=== PATIENT | female | born 1945 | race Caucasian/White ===

== ENCOUNTER 2020-07-24 14:37 | Outpatient (CLI) | payer MEDICARE, SELFPAY ==
--- NOTE | 2020-07-24 14:58 | MM_ITS ---
WS: [id number] BILATERAL DIGITAL SCREENING MAMMOGRAPHY WITH CAD CLINICAL INFORMATION: SCREENING HISTORY: Screening mammogram. No current complaints. COMPARISON: TECHNIQUE: Bilateral CC and MLO views. FINDINGS: Scattered fibroglandular densities bilaterally. No suspicious focal mass, asymmetry, calcifications, or architectural distortion. No evidence of malignancy. MM/[place] [id number] IMPRESSION: BI-RADS: 1-Negative FOLLOW UP: 1 Year Follow-up Recommend return to annual screening mammography.
--- NOTE | 2020-07-24 15:44 | XR_ITS ---
WS: [id number] Bone mineral density performed on a [employer] IDXA, 2 day Clinical data: ASYMPTOMATIC POSTMENOPAUSAL STATE COMPARISON study: DEXA scan, 09/09/2014. Findings: The first 4 lumbar vertebral bodies demonstrated the bone mineral density of 1.271 g/cm2 for a young adult T score of 0.8. Measurement of the left hip reveals the bone mineral density of 0.802 g/sq cm for young adult T scor e of -1.6. XR/XR DEXA axial skeleton* [id number] Impression: 1. The bone mineral density of the lumbar spine is normal and actually shows sl ight improvement from the bone mineral density of the prior study. 2. The bone mineral density of the left hip shows osteopenia with a slight decr ease in the bone mineral density compared to the prior study.
--- NOTE | 2020-07-24 15:44 | XR_ITS ---
WS: [id number] Right hip, AP and frog-leg views, 07/24/2020 Clinical Data: Osteoarthritis, unspecified SITE Comparison: Right hip, 05/15/2014. Findings: The right hip arthroplasty has not changed. The components remain in good position. There are no frac tures or dislocations. No loosening is seen. The adjacent right pelvis is unremarkable. XR/XR hip RT 2-3V wo/w pel* [id number] Impression: Satisfactory right hip arthroplasty.
--- NOTE | 2020-07-24 15:44 | XR_ITS ---
WS: [id number] Cervical spine, 3 views, 07/24/2020 Clinical Data: HEADACHE UNSPECIFIED Comparison: None. Findings: No compression fractures are seen. There is disc space narrowing at C5-C6. There is anterio r osteoarthritic spurring at C3, C4, C5 and C6. There is no prevertebral soft tissue swelling. The od ontoid is unremarkable. The cervical vertebra show diffuse osteoporosis. The soft tissues of the neck and the lung apices are normal. XR/XR cervical spine 3V* [id number] Impression: 1. Osteoarthritis from C3 through C6. 2. Degenerative disc narrowing at C5-C6. 3. Osteoporosis of the cervical vertebra.
== END 2020-07-24 14:38 | disposition home or self-care (01) ==
LOC: RADSHAW 14:48
PROVIDERS: PCP Family Medicine; Visit Provider Family Medicine
DX: Z12.31 Encounter for screening mammogram for malignant neoplasm of breast (principal); Z78.0 Asymptomatic menopausal state; Z96.641 Presence of right artificial hip joint; R51.9 Headache, unspecified; M47.812 Spondylosis without myelopathy or radiculopathy, cervical region; M81.0 Age-related osteoporosis without current pathological fracture
CPT/HCPCS: 72040; 73502; 77067; 77080

== ENCOUNTER 2023-01-13 14:08 | Outpatient (CLI) | payer MEDICARE, SELFPAY ==
--- NOTE | 2023-01-13 14:29 | USCV_ITS ---
Brii Julian Age: 77 Gender: F : 1945 Exam Date: 01/13/2023 15:16 Ordering Phys: Lorena Castillo MD Technologist: [place] [facility] [place]: [place] Risk Factors: Previous Vascular Surgery: Right Brachial BP: / Left Brachial BP: / Right Left Velocity (cm/s) Spectral Plaque Velocity (cm/s) Spectral Plaque Syst/Diast Broadening Syst/Diast Broadening 59.80/ 10.90 Prox CCA 51.50 / 11.80 61.40/ 10.10 Mid CCA 48.00 / 12.40 53.60/ 10.90 Distal CCA 46.80 / 7.10 55.70/ 15.40 Prox ICA 37.90 / 9.50 49.70/ 11.20 Mid ICA 45.60 / 8.90 56.80/ 13.60 Distal ICA 79.30 / 15.40 71.60 ECA 59.80 0.93 ICA/CCA 1.54 Antegrade Vertebral Antegrade 52.70/ 9.50 cm/s 53.90/ 9.50 cm/s Bi Subclavian Bi 82.30 84.10 CONCLUSIONS Right ICA stenosis <50%. Mild atheromatous plaque right carotid bulb/ICA. Left ICA stenosis <50%. Mild atheromatous plaque left carotid bulb/ICA. Normal antegrade Doppler flow noted in the right vertebral artery. Normal antegrade Doppler flow noted in the left vertebral artery. Thad Greene MD (Electronically Signed) Final Date: 17 Jan 2023 09:59 S
--- NOTE | 2023-01-13 14:32 | USCV_ITS ---
Brii Julian Age: 77 Gender: F : 1945 Exam Date: 01/13/2023 15:27 Ordering Phys: Lorena Castillo MD Technologist: [place] [facility] [place]ication: chest pain BP: 130 / 80 HR: 86 Rhythm: Sinus Technical Quality: Suboptimal MEASUREMENTS (Male / Female) Normal Values 2D ECHO LV Diastolic Diameter PLAX 5.0 cm 4.2 - 5.9 / 3.9 - 5.3 cm LV Systolic Diameter PLAX 3.8 cm IVS Diastolic Thickness 1.2 cm 0.6 - 1.0 / 0.6 - 0.9 cm IVS Systolic Thickness 1.8 cm LVPW Diastolic Thickness 1.4 cm 0.6 - 1.0 / 0.6 - 0.9 cm LVPW Systolic Thickness 1.8 cm LVOT Diameter 2.4 cm LV Ejection Fraction 2D Teich 33.4 % LV Ejection Fraction MOD 2C 56.7 % LV Ejection Fraction 2C AL 60.0 % LA Diameter 4.1 cm LA Width 6.0 cm IVC Diameter 1.0 cm M-MODE Aortic Annulus Diameter 3.4 cm LA Ao Ratio MM 1.2 MV E Point Septal Separation 0.8 cm DOPPLER AV Peak Velocity 259.0 cm/s LVOT Peak Velocity 111.0 cm/s AV Area Cont Eq vti 2.3 cm squared AV Area Cont Eq pk 1.9 cm squared MV Area PHT 3.0 cm squared Mitral E to A Ratio 0.7 MV E' Velocity 33.5 cm/s Mitral E to MV E' Ratio 6.5 Mitral E to LV E' Lateral Ratio 5.7 Mitral E to LV E' Septal Ratio 7.7 TR Peak Velocity 240.7 cm/s TR Peak Gradient 23.2 mmHg TV Peak E Velocity 108.0 cm/s Right Atrial Pressure 3.0 mmHg Pulmonary Artery Systolic Pressu 26.2 mmHg RV Acceleration Time 0.2 s FINDINGS Left Ventricle Normal left ventricular size, systolic function and wall thickness, with no regional wall motion abnormalities. Grade I/IV diastolic dysfunction (abnormal relaxation filling pattern), normal to mildly elevated filling pressures. Left ventricular ejection fraction is estimated at 60 %. Right Ventricle Normal right ventricular size and systolic function. Normal right ventricular systolic pressure. Right Atrium Mildly increased right atrial size. Left Atrium Mildly increased left atrial size. Mitral Valve Structurally normal mitral valve. Mild mitral valve regurgitation. Aortic Valve Structurally normal trileaflet aortic valve. Mild aortic valve calcification. Trace aortic valve regurgitation. No aortic valve stenosis. Tricuspid Valve Structurally normal tricuspid valve. Mild tricuspid valve regurgitation. Pulmonic Valve Pulmonic valve not well visualized. Pericardium Normal pericardium without effusion. Aorta Normal ascending aorta dimension. IVC The inferior vena cava appears normal. CONCLUSIONS Normal left ventricular size, systolic function and wall thickness, with no regional wall motion abnormalities. Grade I/IV diastolic dysfunction (abnormal relaxation filling pattern), normal to mildly elevated filling pressures. Left ventricular ejection fraction is estimated at 60 %. Mildly increased right atrial size. Mildly increased left atrial size. Structurally normal mitral valve. Mild mitral valve regurgitation. Structurally normal trileaflet aortic valve. Mild aortic valve calcification. Trace aortic valve regurgitation. No aortic valve stenosis. There are no prior echocardiogram studies to compare. Dr. Wagner Martínez MD (Electronically Signed) Final Date: 14 Jan 2023 09:54 S
== END 2023-01-13 14:09 | disposition home or self-care (01) ==
PROVIDERS: PCP Family Medicine; Visit Provider Family Medicine
DX: I65.21 Occlusion and stenosis of right carotid artery (principal); R07.9 Chest pain, unspecified; R06.00 Dyspnea, unspecified; I51.7 Cardiomegaly
CPT/HCPCS: 93306; 93880

== ENCOUNTER 2024-02-22 11:47 | Emergency (ER) | payer MEDICARE, SELFPAY ==
[2024-02-22 11:51] VITALS: BP 142/68; PULSE 64; RESP 16; TEMP 36.4; O2SAT 97; BMI 28.1
--- NOTE | 2024-02-22 13:19 | XRR_ITS ---
PROCEDURE INFORMATION: Exam: XR Lumbosacral Spine Exam date and time: 02/22/2024 1:31 PM Age: 78 years old Clinical indication: Injury or trauma; Fall; Blunt trauma (contusions or hematomas); Additional info: Fall, low back pain. No history of surgery is provided. TECHNIQUE: Imaging protocol: Radiologic exam of the lumbosacral spine. 3image(s) are provided. Views: 2 or 3 views. COMPARISON: No relevant prior lumbar studies available. Previous abdominal CT report of 2012. FINDINGS: Tubes, catheters and devices: Joint prosthetic hardware of the hip is demonstrated on the lateral view. Bones/joints: Osseous alignment is overall maintained. No displaced fracture or dislocation is appreciated.There is slightly decreased bone mineralization overall. There is some cortical thickening suggestive of injury of the sacrococcygeal junction. There does appear to be some subtle offset however. Consider overall if there is localized point tenderness. Symmetric appearance of the sacral arcuate lines and sacroiliac junctions are appreciated. There is multilevel degeneration present overall throughout the spine with areas of spurring and disc space narrowing. This includes some bridging osteophytosis of the thoracolumbar junction as well as exuberant posterior element hypertrophy of the lumbosacral junction. There is some subtle anterolisthesis of the L4-L5 level. Soft tissues: No radiopaque foreign body or subcutaneous emphysema is appreciated. Lungs: No lobar consolidation is appreciated. Vasculature: There is some atherosclerotic vascular calcifications present. XR/XR lumbar spine 2-3V* [id number] IMPRESSION: 1. There are multilevel degenerative changes of the lumbar spine demonstrated with no displaced lumbar fracture or dislocation appreciated. 2. There is however some subtle cortical offset indicative of nondisplaced injury about the sacrococcygeal junction.
--- NOTE | 2024-02-22 13:19 | W.ED.BACK ---
HPI - Back Pain/Injury General: Chief Complaint: Back Pain/Injury Stated Complaint: back pain from fall Time Seen by Provider: 02/22/24 12:15 History of Present Illness: 78-year-old female comes in today with complaints of low back pain radiating down the right leg. Patient endorses that she was on the deck last week when she slipped twisting and following on a wet ground. Since then patient has had some low back pain that seems to radiate into her right hip. Patient is been ambulatory. Patient has been having to drive back and forth from her house to the hospital due to her 's illness. Patient reports increased pain and discomfort and tightness in her lower back. Patient appears nontoxic. Patient denies any chronic medical problems. Patient takes no routine medicines. Patient taken some Tylenol with minimal relief. Review of Systems General: Reports: 10 or more systems reviewed and unremarkable except in HPI and below Musc: Reports: back pain Physical Exam Const: COMMON NORMALS: alert HENMT: COMMON NORMALS: normocephalic HEAD & SCALP: normocephalic Neck/C-Spine: COMMON NORMALS: full ROM Resp: COMMON NORMALS: normal respiratory effort Cardio: COMMON NORMALS: regular rate and regular rhythm RATE: regular rate RHYTHM: regular rhythm GI: COMMON NORMALS: non-tender Back/Pelvis: THORACIC SPINE/UPPER BACK: Yes normal to inspection LUMBAR SPINE/LOWER BACK: Yes lumbar spinal tenderness Lumbar spinal tenderness location: L4 and L5 and Yes paraspinal muscle tenderness Lumbar paraspinal muscle tenderness: right SACROILIAC JOINTS: Yes SI joint(s) abnormal SI joint details: tender to palpation (right) Extremity: COMMON NORMALS: normal to inspection Neuro: SENSORIUM/ORIENTATION: Yes alert Skin: COMMON NORMALS: turgor normal GENERAL SKIN EXAM: turgor normal Course Vital Signs: Vital signs: Vital Signs Temperature 97.6 F 02/22/24 11:51 Pulse Rate 64 02/22/24 11:51 Respiratory Rate 16 02/22/24 11:51 Blood Pressure 142/68 02/22/24 11:51 Pulse Oximetry 97 02/22/24 11:51 Oxygen Delivery Me thod Room Air 02/22/24 11:51 MDM - Back Pain/Injury Medical Decision Making 78-year-old female comes in today with complaints of low back pain with pain rating down the right leg. Patient appears nontoxic. Patient appears in no acute distress. Respirations are even lungs are clear to auscultation. Abdomen soft nontender. Skin is warm and dry. Patient has tenderness in the L4-L5 region of the lumbar spine. Patient has tenderness in the right paraspinous muscles of the lumbar spine. Patient has some tenderness in the right sacroiliac joint. Patient has normal range of motion of the extremities and is weightbearing. Differential diagnosis includes intervertebral disc disease, vertebral fracture, lumbar strain, facet arthropathy. X-ray noted significant degenerative changes of the lumbar spine and a possible nondisplaced fracture of the sacrococcygeal junction. Palpation of the area did not elicit pain. If this is a nondisplaced fracture is a old injury. Believe patient most likely has a lumbar strain with some lumbar radiculopathy. Patient will be put on naproxen 500 mg twice a day for the next 10 days. Patient to use Tylenol furthermore for pain relief. Patient reports understanding and agreed to plan. Patient was given ketorolac 30 mg in the ER and 10 mg of dexamethasone. Labs Radiology Impressions Lumbar Spine X-Ray 02/22/24 13:19 IMPRESSION: 1. There are multilevel degenerative changes of the lumbar spine demonstrated with no displaced lumbar fracture or dislocation appreciated. 2. There is however some subtle cortical offset indicative of nondisplaced injury about the sacrococcygeal junction. All radiology interpretation(s) finalized by discharge Discharge Plan Discharge Patient Disposition: Home Clinical Impression: Lumbar radiculopathy Condition: Stable Prescriptions: New naproxen 500 mg tablet 500 mg PO BID PRN (Reason: pain) Qty: 20 0RF Discharge Orders: Discharge ED (Routine); Ordered 02/22/24 Ordered By: Rustam Arias Referrals: Lorena Castillo MD [Primary Care Provider] - Discharge Diet: Usual diet Discharge Activity: Increase activity as tolerated Patient Instructions: Back Pain (ED) Activity Restrictions/Additional Instructions: Activity as tolerated. Continue with acetaminophen to help with pain. Use naproxen 500 mg twice a day for further pain and inflammation relief. Follow-up with primary care in 3 to 5 days for recheck. Return to ED for new concerns. Coding Level of Care Code ED Leather Stripping Machine Operator for Em Echevarria
[2024-02-22] MEDS: dexamethasone 10 mg/mL INJ IM (13:44)
[2024-02-22] MEDS: ketorolac 30 mg/mL INJ IM (13:44)
[2024-02-22 14:45] VITALS: BP 139/76; PULSE 66; RESP 16; O2SAT 98
== END 2024-02-22 14:46 | disposition home or self-care (01) ==
PROVIDERS: Emergency Provider Nurse Practitioner Family; PCP Family Medicine
DX: M54.16 Radiculopathy, lumbar region (principal)
CPT/HCPCS: 72100; 96372; 99284; J1100; J1885

== ENCOUNTER 2024-03-02 13:55 | Outpatient (CLI) | payer MEDICARE, SELFPAY ==
--- NOTE | 2024-03-02 14:12 | XRR_ITS ---
PROCEDURE INFORMATION: Exam: XR Right Hip Exam date and time: 03/02/2024 2:13 PM Age: 78 years old Clinical indication: Injury or trauma; Fall; Prior surgery; Surgery date: 6+ months; Surgery type: RT hip arthroplasty; Additional info: RT hip pain post fall x 1 week ago; HX RT hip arthroplasty TECHNIQUE: Imaging protocol: Radiologic exam of the right hip. Views: 1 view hip with pelvis when performed. COMPARISON: CR XR hip RT 2-3V wo/w pel* [id number] 07/24/2020 3:52 PM FINDINGS: Bones/joints: Right total hip replacement. Acetabular and proximal femoral components appear intact without obvious complication. There are moderate degenerative changes across the pubic symphysis and visualized sacroiliac joints. No evidence for acute fracture. Soft tissues: There are benign-appearing soft tissue calcifications. Vasculature: There are peripheral vascular calcifications. XR/XR hip RT 2-3V wo/w pel* [id number] IMPRESSION: No acute findings.Non acute findings as described above.
== END 2024-03-02 13:56 | disposition home or self-care (01) ==
PROVIDERS: PCP Family Medicine; Visit Provider Family Medicine
DX: M16.0 Bilateral primary osteoarthritis of hip (principal); W19.XXXA Unspecified fall, initial encounter; Z96.641 Presence of right artificial hip joint; M61.9 Calcification and ossification of muscle, unspecified; M25.551 Pain in right hip
CPT/HCPCS: 73502

== ENCOUNTER 2024-09-04 22:27 | Emergency (ER) | payer MEDICARE, SELFPAY ==
[2024-09-04 22:27] VITALS: BP 185/128; PULSE 76; RESP 22; TEMP 36.5; O2SAT 98; BMI 34.4
--- NOTE | 2024-09-04 22:35 | XRR_ITS ---
PROCEDURE INFORMATION: Exam: XR Right Hip Exam date and time: 09/04/2024 10:44 PM Age: 78 years old Clinical indication: Injury or trauma; Fall; Blunt trauma (contusions or hematomas); Right; Hip and pelvic region; Prior surgery; Surgery date: 6+ months; Surgery type: RT hip replacement; Additional info: Hip pain TECHNIQUE: Imaging protocol: Radiologic exam of the right hip. Views: 1 view hip with pelvis when performed. COMPARISON: CR XR hip RT 2-3V wo/w pel* [id number] 03/02/2024 2:13 PM FINDINGS: Bones/joints: Right hip joint joint arthroplasty. Moderate left hip joint osteoarthrosis. Interval superior dislocation of the femoroacetabular joint component. Severe right knee joint tricompartmental osteoarthrosis. There is near [id number] articulation of the knee joint. Soft tissues: Unremarkable. Intraperitoneal space: The visualized portions of the pelvis appear intact. XR/XR hip RT 2-3V wo/w pel* [id number] IMPRESSION: As above.
[2024-09-04 22:45] VITALS: BP 179/98; PULSE 67; O2SAT 100
--- NOTE | 2024-09-04 23:07 | W.ED.FALL ---
HPI - Fall General: Chief Complaint: Fall Stated Complaint: Right Hip fx Time Seen by Provider: 09/04/24 22:33 History of Present Illness: 78-year-old female with no significant medical history other than obesity who presents the emergency room with hip pain after a fall. She has shortening and rotation of the right leg with pain at the hip. She has had a hip prosthesis back in 2012. It was done here but she does not remember my home. She did not hit her head. She has no other injuries. No knee pain. No femur pain. No chest pain. No loss of consciousness. No altered mental status. Related Data Previous Rx's Medication Instructions Recorded naproxen 500 mg tablet 500 mg PO BID PRN pain #20 tabs 02/22/24 Allergies Allergy/AdvReac Type Severity Reaction Status Date / Time No Known Drug Allergies Allergy Unknown Verified 02/22/24 11:59 Review of Systems Narrative: Constitutional symptoms: Negative except as documented in HPI. Skin symptoms: Negative except as documented in HPI. Eye symptoms: Negative except as documented in HPI. ENMT symptoms: Negative except as documented in HPI. Respiratory symptoms: Negative except as documented in HPI. Cardiovascular symptoms: Negative except as documented in HPI. Gastrointestinal symptoms: Negative except as documented in HPI. Genitourinary symptoms: Negative except as documented in HPI. Musculoskeletal symptoms: Negative except as documented in HPI. Neurologic symptoms: Negative except as documented in HPI. Psychiatric symptoms: Negative except as documented in HPI. Endocrine symptoms: Negative except as documented in HPI. Physical Exam Narrative: EXAM NARRATIVE: General: Alert, no acute distress. Skin: Warm, dry. Head: Normocephalic, atraumatic. Neck: Supple, trachea midline. Eye: Extraocular movements are intact. Ears, nose, mouth and throat: mucosa moist. Cardiovascular: Regular, Normal peripheral perfusion. Respiratory: Lungs are clear to auscultation, respirations are non-labored, breath sounds are equal, Symmetrical chest wall expansion. Gastrointestinal: Soft, Nontender, Non distended Musculoskeletal: Shortening and rotation medially of the right leg with pain with any movement at the hip joint. No pain to palpation of the knee or femur. Neurovascularly intact Neurological: Alert and oriented, No focal neurological deficit observed. Psychiatric: Cooperative, appropriate mood & affect. Course Vital Signs: Vital signs: Vital Signs Temperature 97.7 F 09/04/24 22:27 Pulse Rate 65 09/05/24 00:00 Respiratory Rate 22 H 09/04/24 22:27 Blood Pressure 148/75 09/05/24 00:00 Pulse Oximetry 95 09/05/24 00:00 Oxygen Delivery Me thod Nasal Cannula 09/05/24 00:00 Oxygen Flow Rate 2 09/05/24 00:00 MDM - Fall Medical Decision Making X-ray of the right hip and pelvis shows dislocated hip prosthesis. Severe degenerative changes of the knee. No obvious pelvic fractures. This was reviewed and interpreted by myself the emergency room physician. I also reviewed the radiology report. Consultation: I spoke with Dr. Sood who is on-call for orthopedics and he agrees that conscious sedation and reduction should be performed here in the emergency room. He also recommends knee immobilizer after reduction of the hip and follow-up in clinic. Procedural sedation Time: 2334. Confirmed: Patient and procedure correct. Consent: Consent: The risks and benefits of monitored anesthesia care, including the risk of aspiration, nausea/vomiting and the risks of not performing the procedure, including severe pain and inability to complete the procedure, were all discussed with the patient. The alternatives of performing the procedure, including local anesthesia and IV analgesia, also discussed. The patient has a ride home available Indication: Closed reduction. Monitoring: Cardiac, blood pressure, continuous pulse oximetry. Preparation: Suction, IV access, Constant attendance, Supplemental oxygen. No significant family history of sedation complications See ER physician note for summary of the patient's present medication list and for drug allergy and intolerance history Physical exam: Airway: appears normal, Heart: regular rate and rhythm, Breath sounds: equal. Pre sedation vital signs: See nurse's notes. Procedural sedation: 100 mg IV propofol. . Post sedation vital signs: See nurse's notes. Patient tolerated: Well. Complications: The patient was recovered from the sedation without complication or incident. Post sedation condition: Patient returned to pre-sedation level of awareness. The monitoring was discontinued at this time. Performed by: Self. Notes: Pt attended by independent trained observer time of sedation was 15 minutes. . Fracuture / Dislocation procedure Time: 2339 Confirmed correct: Patient, procedure, sight. Consent: Patient Indication: Dislocation of the right hip Location: Right hip Pre procedure exam: Sensory intact, Procedural sedation: (repeat): IV propofol 100 mg Monitoring: Cardiac, blood pressure and pulse oximiter Technique: traction - counter traction. Post-procedure exam: _ alignment improved, circulatory neuro intact. Immobilization: Knee immobilizer Patient tolerated: Well Complications: None Performed by (rpt): Self Notes: Procedure time:10 min Repeat x-ray of the right hip and pelvis: Postreduction films. Hip is back in proper location no fractures. This was reviewed and interpreted by myself the emergency room physician. I also reviewed the radiology report. Assessment and plan: Dislocation of hip arthroplasty ?Conscious sedation in the emergency room. Hip reduced. Follow-up with Ortho - Discharged home - Discussed plan with patient. Answered any questions. - Evaluation and treatment of this problem were appropriate in the emergency setting. Lab Data Radiology Impressions Hip/Pelvis X-Ray 09/04/24 22:35 IMPRESSION: As above. Hip X-Ray 09/04/24 23:48 IMPRESSION: Right hip arthroplasty with anatomic alignment of the femoral head and acetabular components status post reduction. All radiology interpretation(s) finalized by discharge Discharge Plan Discharge Patient Disposition: Home Clinical Impression: Hip dislocation, right, History of total right hip arthroplasty Condition: Stable Prescriptions: No Action naproxen 500 mg tablet 500 mg PO BID PRN (Reason: pain) Qty: 20 0RF Discharge Orders: Discharge ED (Routine); Ordered 09/05/24 Ordered By: Rebecca Conde Referrals: Lorena Castillo MD [Primary Care Provider] - Helder Sood DO [Physician] - 4-7 days (Please call for follow-up appointment with Dr. Sood or orthopod of your choice) Discharge Diet: Usual diet Discharge Activity: Increase activity as tolerated Patient Instructions: Hip Dislocation (ED), Opioid Safety, Pain Management Activity Restrictions/Additional Instructions: Thank you for choosing [facility] for your healthcare needs today. Please realize this is an emergency room and that we are providing you with a medical screening exam and this may not be complete and all inclusive of all the testing and or work up that you may need to determine your ailment or severity of your illness. You have been screened and evaluated and felt safe for discharge. Health conditions do change or evolve sometimes and as such it is important that you follow up with your Primary Doctor to be re checked, 3-5 days is a general good time frame for follow up. You are always welcome to return to the ED for re assessment if your symptoms are worsening or you have new concerns Coding Level of Care Code ED Library Circulation Technician for Em Echevarria
[2024-09-04] MEDS: ondansetron 2 mg/ML SDV 2 mL 4 MG IVP (23:40)
[2024-09-04 23:43] VITALS: BP 132/80; PULSE 71; O2SAT 98
[2024-09-04 23:47] VITALS: PULSE 70; O2SAT 98
--- NOTE | 2024-09-04 23:48 | XRR_ITS ---
PROCEDURE INFORMATION: Exam: XR Right Hip Exam date and time: 09/04/2024 11:48 PM Age: 78 years old Clinical indication: Hip pain; Right hip; Prior surgery; Surgery date: 6+ months; Surgery type: Hip replacement; Additional info: Reduction TECHNIQUE: Imaging protocol: Radiologic exam of the right hip. Views: 1 view hip with pelvis when performed. COMPARISON: CR XR hip RT 2-3V wo/w pel* [id number] 09/04/2024 10:44 PM FINDINGS: Tubes, catheters and devices: Right hip arthroplasty with anatomic alignment of the femoral head and acetabular component status post reduction. Bones/joints: Unremarkable. No acute fracture. Soft tissues: Unremarkable. XR/XR hip RT 1V wo/w pel [id number] IMPRESSION: Right hip arthroplasty with anatomic alignment of the femoral head and acetabular components status post reduction.
[2024-09-04] MEDS: propofol 10 mg/mL SDV 20 mL 49.9 MG IVP ×2 (23:50→23:52)
[2024-09-05] VITALS: BP 148/75; PULSE 65; O2SAT 95
--- NOTE | 2024-09-05 00:02 | PC.NURSE ---
PER VERBAL ORDER FROM DR. MORALES, ORDER AND ADMIN PROPOFOL 49.9 MG IVP ONCE TO EQUAL 99.8 MG IVP TOTAL
--- NOTE | 2024-09-05 00:09 | PC.NURSE ---
PATIENT IS A&OX4 WITH EQUAL NONLABORED RESPIRATIONS AT 1207 POST CONSCIOUS SEDATION.
--- NOTE | 2024-09-05 00:14 | PC.NURSE ---
WASTED 99.8 MG PROPOFOL WITH CORNELIO FERNANDEZ RN.
[2024-09-05 00:30] VITALS: BP 125/90; PULSE 93; O2SAT 96
[2024-09-05 01:30] VITALS: BP 135/90; PULSE 93; O2SAT 94
[2024-09-05 02:39] VITALS: BP 167/128; PULSE 75; O2SAT 97
== END 2024-09-05 02:10 | disposition home or self-care (01) ==
PROVIDERS: Emergency Provider Emergency Medicine; PCP Family Medicine
DX: S73.004A Unspecified dislocation of right hip, initial encounter (principal); W19.XXXA Unspecified fall, initial encounter; Z96.641 Presence of right artificial hip joint
CPT/HCPCS: 27250; 73501; 73502; 96374; 99152; 99285; J2405; J2704

== ENCOUNTER 2024-11-11 15:52 | Emergency (ER) | payer MEDICARE, SELFPAY ==
[2024-11-11] VITALS (8 sets, daily range): BP systolic 142–191; BP diastolic 57–91; PULSE 50–80; RESP 14–19; TEMP 36.4; O2SAT 93–100; BMI 33.2
--- NOTE | 2024-11-11 15:59 | XRR_ITS ---
PROCEDURE INFORMATION: Exam: XR Right Hip Exam date and time: 11/11/2024 4:08 PM Age: 78 years old Clinical indication: Hip pain; Right hip; Additional info: Pain/dislocation? One view pelvis too please TECHNIQUE: Imaging protocol: Radiologic exam of the right hip. Views: 1 view hip with pelvis when performed. COMPARISON: CR XR hip RT 1V wo/w pel [id number] 09/04/2024 11:48 PM FINDINGS: Bones/joints: There is a non cemented right hip prosthesis in place with superior and posterior dislocation of the femoral component from the acetabular component. No acute fracture is detected. There is moderate narrowing of the left hip joint with subchondral sclerosis and small marginal spurs. Soft tissues: Unremarkable. XR/XR hip RT 2-3V wo/w pel* [id number] IMPRESSION: 1. Right prosthetic hip dislocation as described. 2. Moderate osteoarthritis involving the left hip.
--- NOTE | 2024-11-11 16:10 | ED_ITS ---
Documented by User: DOV Couch 11/11/24 16:55 HPI - Extremity Problem General: Chief complaint: Extremity Injury, Lower Stated complaint: R hip dislocation Time Seen by Provider: 11/11/24 15:56 Source: patient Mode of arrival: EMS Limitations: no limitations History of Present Illness: 78-year-old female presents to the ER co mplaining of a right sided hip dislocati on. Patient has no significant medical history. Patient states she was sitting in her recliner chair and when she tried to move her right leg across she felt a pop. Patient called EMS right away and was given fentanyl 150 mg in the ambulance for pain. Patient states she had a prior right sided hip dislocation on 2023. She describes her pain as sharp, stabbing, throbbing at her right hip that radiates down her right leg and into the groin. Patient rated the pain 10 out of 10 prior to pain meds. Patient denies chest pain, shortness of breath, back pain, abdominal pain. MD Complaint: joint pain Onset (ago): hour(s) Pain Consistency: constant Location: right and lower extremity (R. hip ) Severity scale (1-10): 10 Quality: stabbing, aching and sharp Radiation: distal (Radiates down her right leg.) Relieving factors: nothing Exacerbating factors: range of motion and palpation Associated symptoms: Reports no associated symptoms; Deny chest pain or fever(s) Related Data Previous Rx's ?Medication ?Instructions ?Recorded naproxen 500 mg tablet 500 mg PO BID PRN pain #20 t abs 02/22/24 Allergies Allergy/AdvReac Type Severity Reaction Status Date / Time No Known Drug Allergies Allergy Unknown Verified 11/11/24 16:20 Review of Systems Const: Denies: fever(s), chills or body aches Card: Denies: chest pain or palpitations Resp: Denies: dyspnea, productive cough or non-productive cough GI: Denies: abdominal pain Musc: Reports: joint pain (R hip) and limited range of motion (R hip); Denies: neck pain, back pain, joint swelling, joint redness or joint warmth Neuro: Denies: headache(s), numbness in extremities, weakness in extremities or sensory changes Physical Exam Const: COMMON NORMALS: no acute distress, average body habitus, patient oriented x3, no limitations, healthy appearing, alert and well nourished GENERAL APPEARANCE: cooperative ORIENTATION/CONSCIOUSNESS: Yes awake, Yes oriented to person, Yes oriented to place and Yes oriented to time Resp: COMMON NORMALS: normal respiratory effort and clear to auscultation bilaterally EFFORT & INSPECTION: Yes able to speak in complete sentences AUSCULTATION: clear to auscultation bilaterally Cardio: COMMON NORMALS: regular rate and regular rhythm RATE: regular rate RHYTHM: regular rhythm Extremity: COMMON NORMALS: capillary refill normal, no joint enlargement, no clubbing, cyanosis or edema, no calf tenderness and no pedal edema GENERAL: Yes normal exam except as noted RIGHT LOWER EXTREMITY: Yes hip joint (pain with palpation and ROM) Right hip: Yes palpation, Yes ROM and Yes neurovascular exam (normal) Neuro: COMMON NORMALS: patient oriented x3, moves all extremities, no focal motor deficits and no sensory deficits noted SENSORIUM/ORIENTATION: Yes alert, Yes oriented to person, Yes oriented to place and Yes oriented to time Course Vital Signs: Vital signs: Vital Signs Temperature 97.6 F 11/11/24 15:57 Pulse Rate 52 L 11/11/24 17:33 Respiratory Rate 14 11/11/24 17:33 Blood Pressure 166/75 11/11/24 17:33 Pulse Oximetry 99 11/11/24 17:33 Oxygen Delivery Me thod Room Air 11/11/24 17:33 Oxygen Flow Rate 2 11/11/24 17:27 MDM - Extremity (Nontraumatic) Medical Decision Making XR showing dislocation of the femoroacetabular joint component of her prosthesis identical to her dislocation back in August. RN is getting patient set up for conscious sedation and reduction and alerting RT. Dr. Springer will assume care of this patient and perform reduction. Lab Data Radiology Impressions Hip/Pelvis X-Ray 11/11/24 15:59 IMPRESSION: 1. Right prosthetic hip dislocation as described. 2. Moderate osteoarthritis involving the left hip. Hip X-Ray 11/11/24 17:00 IMPRESSION: 1. Status post reduction of previously seen prosthetic hip dislocation, now normally aligned. 2. Small calcific density projecting medial to the lesser trochanter which could represent a small chip fracture, age indeterminate. Discharge Plan Discharge Patient Disposition: Home Clinical Impression: Closed dislocation of right hip Condition: Stable Prescriptions: No Action naproxen 500 mg tablet 500 mg PO BID PRN (Reason: pain) Qty: 20 0RF Discharge Orders: Discharge ED (Routine); Ordered 11/11/24 Ordered By: Pat Springer Referrals: Lorena Castillo MD [Primary Care Provider] - Cody Andino MD [Physician] - 4-7 days Discharge Diet: Advance as tolerated Discharge Activity: Limit activity as instructed Patient Instructions: Dislocation - Hip Print Language: Luxembourger Coding Level of Care Code ED Helicopter Pilot for Chg Fwd Documented by User: Pat Springer MD 11/11/24 18:50 HPI - Extremity Problem General: Chief complaint: Extremity Injury, Lower Stated complaint: R hip dislocation Time Seen by Provider: 11/11/24 15:56 Related Data Previous Rx's ?Medication ?Instructions ?Recorded naproxen 500 mg tablet 500 mg PO BID PRN pain #20 t abs 02/22/24 Allergies Allergy/AdvReac Type Severity Reaction Status Date / Time No Known Drug Allergies Allergy Unknown Verified 11/11/24 16:20 Procedures Orthopedic Joint Reduction Joint #1: Time Out Performed: Yes Side: right Joint Reduction Location: hip Analgesia: procedural sedation Technique used: traction/counter-traction Post-reduction neuro exam: intact Post-reduction vascular: intact Post Reduction X-Ray Obtained: Yes Post Reduction X-Ray Results: reduced Splint Applied: Yes Patient Tolerated Procedure: well Procedural Sedation Indication: fracture/dislocation reduction ASA Class: II Time of Last PO Intake: 12:00 Preparation: playground monitor applied and pulse oximeter IV Propofol dose (mg): 270 Patient Tolerated Procedure: well Complications: none Additional Comments: Patient initially given 170 mg of propofol with no effect IV was likely not working we did start a new IV gave her 100 mg of propofol with good sedation Course Vital Signs: Vital signs: Vital Signs Temperature 97.6 F 11/11/24 15:57 Pulse Rate 52 L 11/11/24 17:33 Respiratory Rate 14 11/11/24 17:33 Blood Pressure 166/75 11/11/24 17:33 Pulse Oximetry 99 03/03/25 17:33 Oxygen Delivery Me thod Room Air 11/11/24 17:33 Oxygen Flow Rate 2 11/11/24 17:27 MDM - Extremity (Nontraumatic) Medical Records I reviewed the patient's medical records. Lab Data I reviewed the patient's lab results. Radiology Impressions Hip/Pelvis X-Ray 11/11/24 15:59 IMPRESSION: 1. Right prosthetic hip dislocation as described. 2. Moderate osteoarthritis involving the left hip. Hip X-Ray 11/11/24 17:00 IMPRESSION: 1. Status post reduction of previously seen prosthetic hip dislocation, now normally aligned. 2. Small calcific density projecting medial to the lesser trochanter which could represent a small chip fracture, age indeterminate. All radiology interpretation(s) finalized by discharge Discharge Plan Discharge Patient Disposition: Home Clinical Impression: Closed dislocation of right hip Condition: Stable Prescriptions: No Action naproxen 500 mg tablet 500 mg PO BID PRN (Reason: pain) Qty: 20 0RF Discharge Orders: Discharge ED (Routine); Ordered 11/11/24 Ordered By: Pat Springer Referrals: Lorena Castillo MD [Primary Care Provider] - Cody Andino MD [Physician] - 4-7 days Discharge Diet: Advance as tolerated Discharge Activity: Limit activity as instructed Patient Instructions: Dislocation - Hip Print Language: Luxembourger Coding Level of Care Code ED Helicopter Pilot for Em Echevarria
[2024-11-11] MEDS: HYDROMORPHONE HCL 0.5 MG/0.5 ML INJ IVP (16:18)
[2024-11-11] MEDS: HYDROMORPHONE HCL 0.5 MG/0.5 ML INJ 1 MG IVP (16:45)
[2024-11-11] MEDS: propofol 10 mg/mL SDV 20 mL 100 MG IVP ×2 (16:59→17:08)
--- NOTE | 2024-11-11 17:00 | XRR_ITS ---
PROCEDURE INFORMATION: Exam: XR Right Hip Exam date and time: 11/11/2024 5:11 PM Age: 78 years old Clinical indication: Other: Post reduction RT hip; Prior surgery; Surgery date: 6+ months; Additional info: Hip pain post reduction TECHNIQUE: Imaging protocol: Radiologic exam of the right hip. Views: 1 view hip with pelvis when performed. COMPARISON: CR XR hip RT 2-3V wo/w pel* [id number] 11/11/2024 4:08 PM FINDINGS: Bones/joints: There has been interval reduction of the previously seen prosthetic hip dislocation, now normally aligned. There is a small 17 x 3 mm calcific density projecting over the soft tissues medial to the lesser trochanter which could represent a small chip fracture, age indeterminate. Soft tissues: Vascular calcification is noted. XR/XR hip RT 1V wo/w pel [id number] IMPRESSION: 1. Status post reduction of previously seen prosthetic hip dislocation, now normally aligned. 2. Small calcific density projecting medial to the lesser trochanter which could represent a small chip fracture, age indeterminate.
--- NOTE | 2024-11-11 17:06 | PC.NURSE ---
Iv to the left forearm that was inserted by ems prior to arrival suspicious for infiltration. New line started to left wrist.
== END 2024-11-11 19:46 | disposition home or self-care (01) ==
PROVIDERS: Emergency Provider Emergency Medicine; PCP Family Medicine
DX: S73.004A Unspecified dislocation of right hip, initial encounter (principal); X58.XXXA Exposure to other specified factors, initial encounter
CPT/HCPCS: 27250; 73501; 73502; 96374; 99152; 99285; J1171; J2704

== ENCOUNTER 2024-11-15 10:50 | Emergency (ER) | payer MEDICARE, SELFPAY ==
[2024-11-15] VITALS (13 sets, daily range): BP systolic 120–188; BP diastolic 57–116; PULSE 51–71; RESP 10–17; TEMP 36.3; O2SAT 89–100; BMI 34.2
--- NOTE | 2024-11-15 11:01 | XR_ITS ---
WS: [id number] XR hip RT 2-3V wo/w pel* [id number] REASON FOR EXAM: hip pain FINDINGS: Total right hip arthroplasty with dislocation of the femoral superiorly and posteriorly. No fracture identified. XR/XR hip RT 2-3V wo/w pel* [id number] IMPRESSION: Dislocation of right hip arthroplasty.
--- NOTE | 2024-11-15 11:06 | PC.PHAR ---
patient takes no medications
[2024-11-15] MEDS: ondansetron 2 mg/ML SDV 2 mL 4 MG IVP (11:38)
--- NOTE | 2024-11-15 11:45 | W.ED.EXTPRO ---
HPI - Extremity Problem General: Chief complaint: Extremity Injury, Lower Stated complaint: right hip dislocation Time Seen by Provider: 11/15/24 11:00 History of Present Illness: 78-year-old female who presents with recurrent right hip dislocation. She says she was walking to a chair when she is bending to sit down she felt a pop in her hip and feels like previous dislocation. She has shortening and rotation of the right leg. She was supposed to follow with orthopedics but was sick that day. This was 2 days ago. She has attempted to reschedule she says. Related Data Home Medications ?Medication ?Instructions ?Recorded ?Confirmed No Known Home Medications 11/15/24 11/15/24 Allergies Allergy/AdvReac Type Severity Reaction Status Date / Time No Known Drug Allergies Allergy Unknown Verified 11/11/24 16:20 Review of Systems Narrative: Constitutional symptoms: Negative except as documented in HPI. Skin symptoms: Negative except as documented in HPI. Eye symptoms: Negative except as documented in HPI. ENMT symptoms: Negative except as documented in HPI. Respiratory symptoms: Negative except as documented in HPI. Cardiovascular symptoms: Negative except as documented in HPI. Gastrointestinal symptoms: Negative except as documented in HPI. Genitourinary symptoms: Negative except as documented in HPI. Musculoskeletal symptoms: Negative except as documented in HPI. Neurologic symptoms: Negative except as documented in HPI. Psychiatric symptoms: Negative except as documented in HPI. Endocrine symptoms: Negative except as documented in HPI. Course Vital Signs: Vital signs: Vital Signs Temperature 97.4 F L 11/15/24 10:51 Pulse Rate 56 L 11/15/24 10:51 Respiratory Rate 17 11/15/24 10:51 Blood Pressure 130/58 11/15/24 10:51 Pulse Oximetry 97 11/15/24 10:51 Oxygen Delivery Me thod Room Air 11/15/24 10:51 MDM - Extremity (Nontraumatic) Medical Decision Making X-ray of the right hip and pelvis shows dislocated hip prosthesis. No obvious pelvic fractures. This was reviewed and interpreted by myself the emergency room physician. I also reviewed the radiology report. Consultation: I spoke with Dr. Andino who is on-call for orthopedics and he agrees that conscious sedation and reduction should be performed here in the emergency room. He was scheduled to see the patient in clinic a couple days ago but she was sick and missed the appointment. He does say she needs revision but revision is not something I do here. Likely she can follow-up with him and he can refer her to an orthopedist that will. He recommends that she wear knee immobilizer at all times to prevent recurrent dislocation. Procedural sedation Time: 1205. Confirmed: Patient and procedure correct. Consent: Consent: The risks and benefits of monitored anesthesia care, including the risk of aspiration, nausea/vomiting and the risks of not performing the procedure, including severe pain and inability to complete the procedure, were all discussed with the patient. The alternatives of performing the procedure, including local anesthesia and IV analgesia, also discussed. The patient has a ride home available Indication: Closed reduction. Monitoring: Cardiac, blood pressure, continuous pulse oximetry. Preparation: Suction, IV access, Constant attendance, Supplemental oxygen. No significant family history of sedation complications See ER physician note for summary of the patient's present medication list and for drug allergy and intolerance history Physical exam: Airway: appears normal, Heart: regular rate and rhythm, Breath sounds: equal. Pre sedation vital signs: See nurse's notes. Procedural sedation: 100 mg IV propofol. . Post sedation vital signs: See nurse's notes. Patient tolerated: Well. Complications: The patient was recovered from the sedation without complication or incident. Post sedation condition: Patient returned to pre-sedation level of awareness. The monitoring was discontinued at this time. Performed by: Self. Notes: Pt attended by independent trained observer time of sedation was 15 minutes. . Fracuture / Dislocation procedure Time: 1205 Confirmed correct: Patient, procedure, sight. Consent: Patient Indication: Dislocation of the right hip Location: Right hip Pre procedure exam: Sensory intact, Procedural sedation: (repeat): IV propofol 100 mg Monitoring: Cardiac, blood pressure and pulse oximiter Technique: traction - counter traction. Post-procedure exam: _ alignment improved, circulatory neuro intact. Immobilization: Knee immobilizer Patient tolerated: Well Complications: Patient had a brief episode of apnea and mild hypoxemia and also had some mild bradycardia. This all has resolved. Performed by (rpt): Self Notes: Procedure time:10 min Repeat x-ray of the right hip and pelvis: Postreduction films. Hip is back in proper location no fractures. This was reviewed and interpreted by myself the emergency room physician. I also reviewed the radiology report. Assessment and plan: Dislocation of hip arthroplasty ?Conscious sedation in the emergency room. Hip reduced. Follow-up with Ortho - Discharged home - Discussed plan with patient. Answered any questions. - Evaluation and treatment of this problem were appropriate in the emergency setting. Lab Data Radiology Impressions Hip/Pelvis X-Ray 11/15/24 11:01 IMPRESSION: Dislocation of right hip arthroplasty. Hip X-Ray 11/15/24 12:07 IMPRESSION: Reduction of dislocated right hip arthroplasty as above. All radiology interpretation(s) finalized by discharge Discharge Plan Discharge Patient Disposition: Home Clinical Impression: Closed dislocation of right hip Condition: Stable Prescriptions: No Action No Known Home Medications Discharge Orders: Discharge ED (Routine); Ordered 11/15/24 Ordered By: Rebecca Conde Referrals: Lorena Castillo MD [Primary Care Provider] - Cody Andino MD [Physician] - (Please follow-up with orthopedics as soon as possible. You likely will need referral to an orthopedic center that does revisions of hip replacements) Patient Instructions: Opioid Safety, Pain Management Activity Restrictions/Additional Instructions: Orthopedics recommends that she wear the knee immobilizer at all times. This will prevent redislocation of your hip. Thank you for choosing [facility] for your healthcare needs today. Please realize this is an emergency room and that we are providing you with a medical screening exam and this may not be complete and all inclusive of all the testing and or work up that you may need to determine your ailment or severity of your illness. You have been screened and evaluated and felt safe for discharge. Health conditions do change or evolve sometimes and as such it is important that you follow up with your Primary Doctor to be re checked, 3-5 days is a general good time frame for follow up. You are always welcome to return to the ED for re assessment if your symptoms are worsening or you have new concerns Print Language: Hungarian Coding Level of Care Code ED Charter Bus Driver for Em Echevarria
--- NOTE | 2024-11-15 11:57 | ECG_ITS ---
[facility] Pat Name: Brii Julian Department: Room: Gender: Female Manager Hair: : 1945 Requested By: Rebecca Garcia Order Number: [id number] Dominguez MD: Taye Sylvester M.D. Measurements Intervals [place] Rate: 66 P: 74 MT: 165 QRS: 31 QRSD: 110 T: 30 QT: 407 QTc: 427 Interpretive Statements SINUS RHYTHM No previous ECG available for comparison Electronically Signed On 11-16-2024 18:02:15 [employer] by Taye Sylvester M.D. [email or web address]
[2024-11-15] MEDS: sodium chloride 0.9% 500 ML 999 ML IV (12:07)
[2024-11-15] MEDS: propofol 10 mg/mL SDV 20 mL 100 MG IVP (12:07)
--- NOTE | 2024-11-15 12:07 | XR_ITS ---
WS: [id number] XR hip RT 1V wo/w pel [id number] REASON FOR EXAM: POST RT HIP REDUCTION FINDINGS: Reduction of arthroplasty dislocation. Bony fragments adjacent to the superior acetabulum and lesser trochanter chronic. No definite acute fracture. XR/XR hip RT 1V wo/w pel [id number] IMPRESSION: Reduction of dislocated right hip arthroplasty as above.
== END 2024-11-15 15:30 | disposition home or self-care (01) ==
PROVIDERS: Emergency Provider Emergency Medicine; PCP Family Medicine
DX: S73.004A Unspecified dislocation of right hip, initial encounter (principal); X58.XXXA Exposure to other specified factors, initial encounter
CPT/HCPCS: 27265; 73501; 73502; 93005; 94799; 96361; 96374; 96375; 99152; 99284; J2405; J2704; J7040

== ENCOUNTER 2024-11-15 19:32 | Emergency (ER) | payer MEDICARE, SELFPAY ==
--- NOTE | 2024-11-15 12:18 | ECG_ITS ---
[facility] Date: 2024-11[facility]15 Pat Name: Brii Julian Department: Room: Gender: Female Housing Management Representative: : 1945 Requested By: Rebecca Garcia Order Number: [id number] Angelica MD: Taye Sylvester M.D. Measurements Intervals [place] Rate: 72 P: -69 AK: 178 QRS: 5 QRSD: 102 T: 3 QT: 409 QTc: 450 Interpretive Statements SINUS RHYTHM NONSPECIFIC ST & T-WAVE ABNORMALITY Compared to ECG 11/15/2024 11:57:45 T-wave abnormality now present Electronically Signed On 11-16-2024 19:29:30 [facility] by Taye Sylvester M.D. [email or web address]
[2024-11-15 19:32] VITALS: BP 148/93; PULSE 59; RESP 16; TEMP 36.7; O2SAT 18; BMI 33.9
--- NOTE | 2024-11-15 19:39 | XRR_ITS ---
PROCEDURE INFORMATION: Exam: XR Right Hip Exam date and time: 11/15/2024 8:07 PM Age: 78 years old Clinical indication: Right hip; Prior surgery; Surgery date: 6+ months; Surgery type: [place]; C/O RT hip pain. Concerned for hip dislocation. TECHNIQUE: Imaging protocol: Radiologic exam of the right hip. Views: 1 view hip with pelvis when performed. COMPARISON: CR XR hip RT 1V wo/w pel [id number] 11/15/2024 12:10 PM FINDINGS: Bones/joints: Total hip arthroplasty without evidence of hardware failure or loosening. Posterior dislocation of the femoral head component of the arthroplasty relative to the acetabular cup. No periprosthetic or other fracture identified. Soft tissues: [id number] atherosclerotic calcification of the femoral artery. Gastrointestinal tract: [id number] amount retained stool in the rectal vault. XR/XR hip RT 2-3V wo/w pel* [id number] IMPRESSION: Posterosuperior dislocation of the femoral component of the right hip arthroplasty.
[2024-11-15 19:58] VITALS: BP 129/87
--- NOTE | 2024-11-15 20:03 | W.ED.EXTPRO ---
HPI - Extremity Problem General: Chief complaint: Extremity Injury, Lower Stated complaint: R HIP PAIN Time Seen by Provider: 11/15/24 19:37 History of Present Illness: 78-year-old female who presents again today to the emergency room with a hip dislocation. She first dislocated her hip back in August on [place]. Then again about 4 5 days ago. Then again today. Each time she was standing up. We discussed that she needs to wear her knee immobilizer to help prevent this. I have consulted orthopedics who it said she likely will need to go somewhere else. She went home and immediately as she sat down she felt it pop back out of place. Dr. Andino with orthopedics and call me before she arrived and recommends that she be transferred to tertiary care center where her prosthesis can be revised. I do not feel comfortable putting this back and again at this point as she had some bradycardia and some mild hypoxemia with sedation the last couple of times. Particularly given that it seems to just popped back out. Related Data Home Medications ?Medication ?Instructions ?Recorded ?Confirmed No Known Home Medications 11/15/24 11/15/24 Allergies Allergy/AdvReac Type Severity Reaction Status Date / Time No Known Drug Allergies Allergy Unknown Verified 11/11/24 16:20 Review of Systems Narrative: Constitutional symptoms: Negative except as documented in HPI. Skin symptoms: Negative except as documented in HPI. Eye symptoms: Negative except as documented in HPI. ENMT symptoms: Negative except as documented in HPI. Respiratory symptoms: Negative except as documented in HPI. Cardiovascular symptoms: Negative except as documented in HPI. Gastrointestinal symptoms: Negative except as documented in HPI. Genitourinary symptoms: Negative except as documented in HPI. Musculoskeletal symptoms: Negative except as documented in HPI. Neurologic symptoms: Negative except as documented in HPI. Psychiatric symptoms: Negative except as documented in HPI. Endocrine symptoms: Negative except as documented in HPI. Physical Exam Narrative: EXAM NARRATIVE: General: Alert, no acute distress. Skin: Warm, dry. Head: Normocephalic, atraumatic. Neck: Supple, trachea midline. Eye: Extraocular movements are intact. Ears, nose, mouth and throat: mucosa moist. Cardiovascular: Regular, Normal peripheral perfusion. Respiratory: Lungs are clear to auscultation, respirations are non-labored, breath sounds are equal, Symmetrical chest wall expansion. Gastrointestinal: Soft, Nontender, Non distended Musculoskeletal: Shortening and rotation of the right leg. Pain with movement. Neurovascularly intact. Neurological: Alert and oriented, No focal neurological deficit observed. Psychiatric: Cooperative, appropriate mood & affect. Course Vital Signs: Vital signs: Vital Signs Temperature 98.1 F 11/15/24 19:32 Pulse Rate 56 L 11/15/24 21:41 Respiratory Rate 16 11/15/24 19:32 Blood Pressure 159/69 11/15/24 21:41 Pulse Oximetry 100 11/15/24 21:41 Oxygen Delivery Me thod Room Air 11/15/24 19:32 MDM - Extremity (Nontraumatic) Medical Decision Making Dr. Andino with orthopedics and call me before she arrived and recommends that she be transferred to tertiary care center where her prosthesis can be revised. I do not feel comfortable putting this back and again at this point as she had some bradycardia and some mild hypoxemia with sedation the last couple of times. Particularly given that it seems to just popped back ou X-ray: Posterior superior dislocation of the femoral component of the right hip arthroplasty. This was reviewed and interpreted by myself the emergency room physician. I also reviewed the radiology report. Consultation: I spoke with Dr. Kenney with orthopedics at [facility] in [place]. He is agreed to transfer. Excepting to the orthopedics floor. Assessment and plan: Recurrent hip dislocation -I discussed the patient with the accepting physician on-call. - Discussed findings and plan with patient. Answered any questions. - All laboratory values were reviewed and interpreted personally by myself, the ER physician - All imaging was reviewed and interpreted personally by myself, the ER physician. - Evaluation and treatment of this problem were appropriate in the emergency setting Lab Data Radiology Impressions Hip/Pelvis X-Ray 11/15/24 19:39 IMPRESSION: Posterosuperior dislocation of the femoral component of the right hip arthroplasty. All radiology interpretation(s) finalized by discharge Discharge Plan Discharge Patient Disposition: Xfer Short-Term Hosp Clinical Impression: Closed dislocation of right hip Condition: Stable Referrals: Lorena Castillo MD [Primary Care Provider] - Print Language: German Coding Level of Care Code ED Head Sulfide Operator for Em Echevarria
[2024-11-15 20:51] VITALS: BP 148/75; PULSE 71; O2SAT 100
[2024-11-15] MEDS: HYDROcodone-acetaminophen 5-325 mg Tablet 1 TAB PO (20:58)
[2024-11-15 21:41] VITALS: BP 159/69; PULSE 56; O2SAT 100
--- NOTE | 2024-11-15 22:03 | PC.NURSE ---
Shruti Dyer updated on patient transfer status.
--- NOTE | 2024-11-15 22:16 | PC.NURSE ---
Report was called to [facility]. All questions and concerns were addressed at time of report.
[2024-11-15 23:10] VITALS: BP 137/75; PULSE 58; O2SAT 95
[2024-11-16 00:34] VITALS: BP 139/60; PULSE 64; O2SAT 96
[2024-11-16 00:40] VITALS: RESP 16
[2024-11-16] MEDS: ondansetron 2 mg/ML SDV 2 mL 4 MG IVP (00:40)
[2024-11-16] MEDS: morphine 4 mg/mL SDV 1 mL IVP (00:40)
[2024-11-16 00:45] VITALS: BP 139/60; PULSE 64; O2SAT 96
== END 2024-11-16 00:47 | disposition short-term general hospital (02) ==
PROVIDERS: Emergency Provider Emergency Medicine; PCP Family Medicine
DX: S73.004A Unspecified dislocation of right hip, initial encounter (principal); X58.XXXA Exposure to other specified factors, initial encounter
CPT/HCPCS: 51702; 73502; 93005; 96374; 96375; 99284; J2270; J2405

== ENCOUNTER 2025-08-11 14:51 | Emergency (ER) | payer MEDICARE, SELFPAY ==
[2025-08-11 14:51] VITALS: BP 182/71; PULSE 52; RESP 16; TEMP 36.6; O2SAT 98; BMI 39.1
--- NOTE | 2025-08-11 15:03 | ED_ITS ---
HPI - General Adult 2 General: Chief complaint: General Medical Stated complaint: not feeling well Time Seen by Provider: 08/11/25 14:52 History of Present Illness: 79-year-old female presents emergency ro om stating she just generally does not feel well. She randomly gets a tremor and tremulous sensation. She said at times it feels like her heart skips a beat. She is not on any medication she denies taking any hyoh-rnu-kncpyac medication she has not had any chest pain or abdominal pain no fever sweats chills cough. No dysuria urgency or frequency. Associated symptoms: Deny chest pain, dyspnea or rash Related Data Home Medications ?Medication ?Instructions ?Recorded ?Confirmed No Known Home Medications 11/15/2404/04 Allergies Allergy/AdvReac Type Severity Reaction Status Date / Time No Known Drug Allergies Allergy Unknown Verified 11/11/24 16:20 Review of Systems 2 Const: Denies: fever(s) or chills Card: Denies: chest pain Resp: Denies: dyspnea GI: Denies: abdominal pain : Denies: dysuria, urinary frequency or urinary urgency Musc: Denies: neck pain or back pain Skin/Breast: Denies: rash Physical Exam 2 Const: GENERAL APPEARANCE: cooperative ORIENTATION/CONSCIOUSNESS: Yes awake HENMT: COMMON NORMALS: normocephalic, atraumatic and hearing grossly normal bilaterally HEAD & SCALP: normocephalic and atraumatic Resp: COMMON NORMALS: normal respiratory effort, No retractions, No use of accessory muscles and clear to auscultation bilaterally AUSCULTATION: clear to auscultation bilaterally Cardio: COMMON NORMALS: regular rate, regular rhythm and No murmurs present (Cardio) RATE: regular rate RHYTHM: regular rhythm GI: COMMON NORMALS: Soft to palpation and No hepatosplenomegaly present A USCULTATION: Yes normoactive bowel sounds PALPATION: Yes Soft to palpation, No Tenderness to palpation present (GI), No Guarding due to palpation present (GI) and Yes No hepatosplenomegaly present Extremity: COMMON NORMALS: normal to inspection, capillary refill normal, no clubbing, cyanosis or edema, no calf tenderness and no pedal edema Neuro: OTHER: No focal neurologic deficits no facial asymmetry no significant ataxia does have a bit of a shuffling gait rivet tosser strength equal bilaterally sensation equal bilaterally strength in lower extremities normal Skin: COMMON NORMALS: no rashes or lesions noted GENERAL SKIN EXAM: no rashes or lesions noted Course 2 Vital Signs: Vital signs: Vital Signs Temperature 97.9 F 08/11/25 14:51 Pulse Rate 57 L 08/11/25 17:40 Respiratory Rate 16 08/11/25 14:51 Blood Pressure 143/72 08/11/25 17:40 Pulse Oximetry 100 08/11/25 17:40 Oxygen Delivery Me thod Room Air 08/11/25 15:36 MDM - General Adult Medical Decision Making Medical decision making Social determinants: Lives alone I reviewed the patient's medical record. I reviewed the patient's current home meds Alternate historians: Daughter nursing staff discussed the patient with her via phone she does have some mild dementia Differential diagnosis: Occult infection, hypotension, orthostasis Lab Review: Labs reviewed no clinically significant findings. No signs of cystitis. Chemistry and CBC are normal Imaging: Head CT negative Assessment of risk: Level of risk: Moderate Hospitalization considerations: No emergent condition requiring hospitalization Reexamination: Repeat exam unremarkable Assessment and plan: Patient has some mild orthostasis she says feeling better after she given IV fluids she ambulated without difficulty labs did not show any acute abnormality she has no focal signs of for stroke. Will discharge patient home encouraged her family to assist whenever able. She likely will need increasing levels of assistance going forward Lab Data 08/11/25 15:03 08/11/25 15:[address] 08/11/25 15:51 IMPRESSION: No acute intracranial abnormality. If symptoms persist, consider further evaluation with MRI, if there are no contraindications to obtaining a MRI scan. Laboratory Results WBC 6.48 10^3/uL (3.29-11.43) 08/11/25 15:03 RBC 4.61 10^6/uL (3.85-5.65) 08/11/25 15:03 Hgb 14.50 g/dL (11.27-16.99) 08/11/25 15:03 Hct 43.9 % (36-47) 08/11/25 15:03 MCV 95.2 fl (85-98) 08/11/25 15:03 MCH 31.5 pg (27-33) 08/11/25 15:03 MCHC 33.0 g/dL (30-55) 08/11/25 15:03 RDW 12.7 % (12.1-15.1) 08/11/25 15:03 Plt Count 249 10^3/cmm (157-399) 08/11/25 15:03 MPV 9.2 fL (7.4-10.4) 08/11/25 15:03 Neut % (Auto) 68.5 % 08/11/25 15:03 Lymph % (Auto) 22.5 % 08/11/25 15:03 Lawrence % (Auto) 6.5 % 08/11/25 15:03 Eos % (Auto) 1.1 % 08/11/25 15:03 Baso % (Auto) 0.8 % 08/11/25 15:03 Neut # (Auto) 4.44 10^3/uL (1.8-7.7) 08/11/25 15:03 Lymph # (Auto) 1.5 10^3/uL (0.8-4.8) 08/11/25 15:03 Lawrence # (Auto) 0.4 10^3/uL (0.2-0.9) 08/11/25 15:03 Eos # (Auto) 0.1 10^3/uL (0.0-0.8) 08/11/25 15:03 Baso # (Auto) 0.1 10^3/uL (0.0-0.1) 08/11/25 15:03 Nucleated RBC % (auto) 0 % 08/11/25 15:03 Nucleated RBCs # 0.0 /100WBC 08/11/25 15:03 Sodium 137 mmol/L (136-145) 08/11/25 15:03 Potassium 3.9 mmol/L (3.5-5.1) 08/11/25 15:03 Chloride 103 mmol/L (98-107) 08/11/25 15:03 Carbon Dioxide 23 mmol/L (22-29) 08/11/25 15:03 Anion Gap 14.9 (5-19) 08/11/25 15:03 BUN 10 mg/dL (8-23) 08/11/25 15:03 Creatinine 0.7 mg/dL (0.5-0.9) 08/11/25 15:03 GFR Calculation Not Reportable 08/11/25 15:03 Glucose 100 mg/dL (65-115) 08/11/25 15:03 Calculated Osmolality 283 mOsm/kg (285-295) L 08/11/25 15:03 Calcium 9.2 mg/dL (8.5-10.5) 08/11/25 15:03 Total Bilirubin 0.9 mg/dL (0.15-1.2) 08/11/25 15:03 AST 13 U/L (0-32) 08/11/25 15:03 ALT 8 U/L (0-33) 08/11/25 15:03 Alkaline Phosphatase 92 U/L (35-105) 08/11/25 15:03 Total Protein 7.2 g/dL (6.6-8.7) 08/11/25 15:03 Albumin 4.0 g/dL (3.5-5.2) 08/11/25 15:03 Globulin 3.2 g/dL (1.3-4.6) 08/11/25 15:03 Urine Color Yellow (Yellow) 08/11/25 15:30 Urine Appearance Cloudy (CLEAR) A 08/11/25 15:30 Urine pH 7.5 (5-7) 08/11/25 15:30 Ur Specific [place] 1.005 (1.005-1.030) 08/11/25 15:30 Urine Protein Negative (Negative) 08/11/25 15:30 Urine Glucose (UA) Negative (Normal) 08/11/25 15:30 Urine Ketones Negative (Negative) 08/11/25 15:30 Urine Blood Negative (Negative) 08/11/25 15:30 Urine Nitrate Negative (Negative) 08/11/25 15:30 Urine Bilirubin Negative (Negative) 08/11/25 15:30 Urine Urobilinogen 0.2 mg/dL (Negative) 08/11/25 15:30 Ur Leukocyte Esterase 1+ (Negative) A 08/11/25 15:30 Urine RBC 0-2 /hpf (0-2) 08/11/25 15:30 Urine WBC 0-5 /hpf (0-5) 08/11/25 15:30 Ur Squamous Epith Cells 0-5 /hpf (0-5) 08/11/25 15:30 Amorphous Sediment Not Reportable 08/11/25 15:30 Urine Bacteria None seen /hpf (NONE) 08/11/25 15:30 Hyaline Casts 0-4 /lpf H 08/11/25 15:30 All radiology interpretation(s) finalized by discharge Discharge Plan Discharge Patient Disposition: Home Clinical Impression: Orthostasis Condition: Stable Prescriptions: No Action No Known Home Medications Discharge Orders: Discharge ED (Routine); Ordered 08/11/25 Ordered By: Jun Garcia Referrals: Lorena Castillo MD [Primary Care Provider, Family Practice] Discharge Diet: Usual diet Discharge Activity: Increase activity as tolerated Patient Instructions: Opioid Safety, Pain Management, Patient Portal & Verón[place] Instructions Activity Restrictions/Additional Instructions: Thank you for choosing [facility] for your healthcare needs today. It is very important that you follow up as instructed or that you return to the Emergency Department should you have concerns or if your condition changes or worsens in any way. Emergency department visits are focused on emergent conditions, in some cases you may require further evaluation on an outpatient basis. You were seen in the emergency room with lightheaded and dizziness when you first stand up. Recommend standing slowly. You are not consistently taking any medications that will affect this. We did give you IV fluids in the emergency room. Follow-up with your doctor within the next week. (Please note that included in your discharge packet is information concerning opioid safety and pain management. This information is given to all patients were discharged from the ER regardless of their discharge diagnosis or the medicines they usually take or are prescribed.) Print Language: Luxembourgish Coding Level of Care Code ED Meteorology Faculty Member for Em Echevarria
[2025-08-11 15:11] LABS: Hematocrit 43.9 % (36-47); Hemoglobin 14.50 g/dL (11.27-16.99); Mean Corpuscular HGB Conc 33.0 g/dL (30-55); Mean Corpuscular Hemoglobin 31.5 pg (27-33); Mean Corpuscular Volume 95.2 fl (85-98); Nucleated Red Blood Cells % 0 %; Platelet Count 249 10^3/cmm (157-399); Red Blood Count 4.61 10^6/uL (3.85-5.65); White Blood Count 6.48 10^3/uL (3.29-11.43)
--- OUTSIDE RECORDS SUMMARY | 2025-08-11 15:32 | XMS_ITS | Clinical Summary ---
Author Organization [facility] Address [address] [place] [address] Care Team Providers Care Customer Success Specialist Name Role Phone Non-Staff, Physician Primary Care Provider Unava ilable Allergies No known active allergies Medications TYLENOL ARTHRITIS PAIN PO Take 2 Caps by mouth 3 times daily. Active BACLOFEN 10 mg Oral Tab Take 1 Tab by mouth every 8 hours. Active MOBIC 7.5 mg Oral Tab Take 1-2 Tabs by mouth daily. Active meclizine (ANTIVERT) 12.5 mg Oral TabIndications:V ertigo Take 1 Tab by mouth 3 times daily as needed for Dizziness. 30 Tab 0 10/03/2008 Active Active Problems Problem Noted Date Diagnosed Date Arthropathy, unspecified, site unspecified Social History Tobacco Use Types Packs/Day Years Used Date Smoking Tobacco: Never Assessed Comments No Sex and Gender Information Value Date Recorded Sex Assigned at Not on file Legal Sex Female 6:56 AM STRAND AND BINDER CONTROLLER Gender Identity Not on file Sexual Orientation Not on file Last Filed Vital Signs Vital Sign Reading Time Taken Comments Blood Pressure 122/64 10/13/2008 3:00 PM STRAND AND BINDER CONTROLLER Pulse 88 10/13/2008 3:00 PM STRAND AND BINDER CONTROLLER Temperature 36.9 C (98.4 F) 10/13/2008 3:00 PM STRAND AND BINDER CONTROLLER Respiratory Rate 14 10/13/2008 3:00 PM STRAND AND BINDER CONTROLLER Oxygen Saturation - - Inhaled Oxygen Concentration - - Weight 112.9 kg (249 lb) 10/03/2008 2:03 PM STRAND AND BINDER CONTROLLER Height - - Body Mass Index - - Plan of Treatment Health Maintenance Due Date Last Done Comments DTAP/TDAP/TD VACCINES (1 - Tdap) 1964 PNEUMOCOCCAL VACCINE 50+ YEARS (1 of 1 - PCV) 12/10/18 96 ZOSTER VACCINE (1 of 2) 12/11/1995 OSTEOPOROSIS SCREENING 2010 RSV VACCINE (60+ or ) (1 - 1-dose 75+ series) 2020 INFLUENZA VACCINE (#1) 2025 Insurance MEDICARE PART A AND B [facility] Care Teams Customer Success Specialist Relationship Specialty Start Date End Date Non-Staff, Physician NO ADDRESS ON FILE PCP - General 04/24/14
--- OUTSIDE RECORDS SUMMARY | 2025-08-11 15:32 | XMS_ITS | Clinical Summary ---
Author Organization [facility] Address [address] Attn: Epic Prelude ADT [place] [id number] Care Team Providers Care Semiconductor Wafer Inspector Name Role Phone Non-Staff, Physician Primary Care Provider Unava ilable Allergies No known active allergies Medications polyethylene glycol 3350 (Miralax) 17 gram/dose Powder Take 1 Scoop (17 Grams) by mouth daily. Dissolve in 8 ounces of fluid and drink entire liquid 527 Gram 5 Active oxyCODONE (ROXICODONE) 5 mg tabletIndication s:History of revision of total replacement of right hip joint Take 1 Tablet (5 mg) by mouth every 4 hours as needed for Pain, Moderate. Max Daily Amount: 30 mg 42 Tablet 5 Active celecoxib (CeleBREX) 200 mg capsule TAKE 1 CAPSULE BY MOUTH EVERY DAY 30 Capsule 5 Active Active Problems Problem Noted Date Diagnosed Date status post right hip revision - 11/20/202411/20 Laboratory test 11/17/2024 Recurrent dislocation of right hip joint prosthe sis 11/16/2024 Arthropathy, unspecified, site unspecified Encounters Date Type Department Care Team Description 07/29/2025 External Device Data ST[facility] ABSTRACTION Provider, Abstract 05/27/2025 External Device Data [facility] ABSTRACTION Provider, Abstract 05/27/2025 External Device Data ST[facility] ABSTRACTION Provider, Abstract 05/20/2025 External Device Data ST[facility] ABSTRACTION Provider, Abstract from Last 3 Months Social History Tobacco Use Types Packs/Day Years Used Date Smoking Tobacco: Never Smokeless Tobacco: Never Alcohol Use Standard Drinks/Week Comments Never 0 (1 standard drink = 0.6 oz pur e alcohol) Feeling Safe Answer Date Recorded Are you in a relationship wi th someone who hurts you emotionally and/or physically? 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 SERVICE MANAGER Gender Identity Not on file Sexual Orientation Not on file Last Filed Vital Signs Vital Sign Reading Time Taken Comments Blood Pressure 139/79 2024 12:18 PM CDT Pulse 70 11/22/2024 11:01 AM CDT Temperature 36.1 C (96.9 F) 2024 12:18 PM CDT Respiratory Rate 16 2024 12:18 PM CDT Oxygen Saturation 100% 2024 12:18 PM CDT Inhaled Oxygen Concentration - - Weight 95.3 kg (210 lb) 2024 12:18 PM CDT Height 170.2 cm (5' 7 ) 2024 12:18 PM CDT Body Mass Index 32.89 2024 12:18 PM CDT Plan of Treatment Health Maintenance Due Date Last Done Comments DTAP/TDAP/TD VACCINES (1 - Tdap) 1964 PNEUMOCOCCAL VACCINE 50+ YEA RS (1 of 1 - PCV) 12/11/1995 ZOSTER VACCINE (1 of 2) 12/11/1995 OSTEOPOROSIS SCREENING 2010 RSV VACCINE (60+ or ) (1 - 1-dose 75+ series) 2020 INFLUENZA VACCINE (#1) 2025 COVID-19 Vaccine (6 - 2024-2 6 season) 2025 06/28/2023, 01/13/2022, 07/15/2021, Additional history exists Medical Devices Implanted Type Area Wholesale Loan Processor Device Identifier Shelf Expiration Date Model / Serial / Lot Head Fem Biolox Option 40/+7 Tpr 08/24 Ceramic 00- [id number] - [id number] Implanted:Qty: 1 on 11/20/2024 by Rey Lizarraga MD at [facility] Hip Right: Hip [employer] 02/08/2029 [id number] / / [id number] Screw Canc Huger 6.5x20mm 1217-20-500 - [id number] Implanted:Qty: 1 on 11/20/2024 by Rey Lizarraga MD at [facility] Screw Right: Hip [employer] 05/11/2034 1217-20-500 / / [id number] Screw Canc Huger 6.5x30mm 1217--500 - [id number] Implanted:Qty: 1 on 11/20/2024 by Rey Lizarraga MD at [facility] Screw Right: Hip [employer] 05/11/2034 1217-30-500 / / [id number] Screw Canc Huger 6.5x15mm 121--500 - [id number] Implanted:Qty: 1 on 11/20/2024 by Rey Lizarraga MD at [facility] Screw Right: Hip [employer] 08/10/2034 1217-15-500 / / [id number] Screw Canc Huger 6.5x30mm 1216--500 - [id number] Implanted:Qty: 1 on 11/20/2024 by Rey Lizarraga MD at [facility] Screw Right: Hip [employer] 08/10/2034 1217-30-500 / / [id number] Screw Canc Huger 6.5x15mm 1217-15-500 - [id number] Implanted:Qty: 1 on 11/20/2024 by Rey Lizarraga MD at [facility] Screw Right: Hip [employer] 02/08/2034 1217-15-500 / / [id number] Screw Canc Huger 6.5x20mm 1217-20-500 - [id number] Implanted:Qty: 1 on 11/20/2024 by Rey Lizarraga MD at [facility] Screw Right: Hip [employer] 01/08/2034 1217-20-500 / / [id number] Shell Acet Mlti H 54mm Implanted:Qty: 1 on 11/20/2024 by Rey Lizarraga MD at [facility] Right: Hip 10/11/2034 [id number] / / [id number] 6.5x25mm Luciana Screw Implanted:Qty: 1 on 11/20/2024 by Rey Lizarraga MD at [facility] Right: Hip 06/10/2034 [id number] / / [id number] Liner Acet Emphasys [id number] Implanted:Qty: 1 on 11/20/2024 by Rey Lizarraga MD at [facility] Right: Hip 10/11/2029 [id number] / / [id number] Explanted Type Area Wholesale Loan Processor Device Identifier Shelf Expiration Date Model / Serial / Lot Acetabular Shell Explanted:Qty: 1 on 11/20/2024 by Rey Lizarraga MD at [facility] Right: Acetabulum Acetabular Liner Explanted:Qty: 1 on 11/20/2024 by Rey Lizarraga MD at [facility] Right: Acetabulum Bone Screws Explanted:Qty: 2 on 11/20/2024 by Rey Lizarraga MD at [facility] Right: Acetabulum Femoral Head Explanted:Qty: 1 on 11/20/2024 by Rey Lizarraga MD at [facility] Right: Hip 6.5x25mm Luciana Screw Explanted:Qty: 1 on 11/20/2024 by Rey Lizarraga MD at [facility] Right: Hip 07/11/2034 [id number] / / [id number] Liner 54mm 40mm +4 Neutral Explanted:Qty: 1 on 11/20/2024 by Rey Lizarraga MD at [facility] Right: Hip 09/10/2029 DEPUY SYNTHES-47 [id number] / / [id number] Insurance [employer] PPO MCR Advance Directives For more information, please contact: [phone] * Full Code (Latest Code Status on File) Date Activated Date Inactivated Comments 11/20/2024 5:55 PM 11/22/2024 3:27 PM * Full Code Date Activated Date Inactivated Comments 11/20/2024 8:42 AM 11/20/2024 5:55 PM * Full Code Date Activated Date Inactivated Comments 11/16/2024 2:46 AM 11/20/2024 8:42 AM Care Teams Semiconductor Wafer Inspector Relationship Specialty Start Date End Date Non-Staff, Physician NO ADDRESS ON FILE PCP - General 04/24/14
[2025-08-11 15:36] VITALS: BP 181/72; PULSE 60; O2SAT 95
[2025-08-11 15:40] LABS: Alanine Aminotransferase 8 U/L (0-33); Albumin Level 4.0 g/dL (3.5-5.2); Alkaline Phosphatase 92 U/L (35-105); Anion Gap 14.9 (5-19); Aspartate Amino Transferase 13 U/L (0-32); Blood Urea Nitrogen 10 mg/dL (8-23); Calcium 9.2 mg/dL (8.5-10.5); Carbon Dioxide 23 mmol/L (22-29); Chloride 103 mmol/L (98-107); Globulin 3.2 g/dL (1.3-4.6); Glucose 100 mg/dL (65-115); Osmolality Calculated 283 mOsm/kg (285-295); Potassium 3.9 mmol/L (3.5-5.1); Sodium 137 mmol/L (136-145); Total Protein 7.2 g/dL (6.6-8.7)
[2025-08-11 15:43] LABS: Glucose Urine UA Negative (Normal); Nitrate Urine Negative (Negative); Specific Gravity, Urine 1.005 (1.005-1.030)
[2025-08-11 15:48] LABS: Add Urine Microscopic? YES
--- NOTE | 2025-08-11 15:51 | CTR_ITS ---
PROCEDURE INFORMATION: Exam: CT Head Without Contrast Exam date and time: 08/11/2025 3:56 PM Age: 79 years old Clinical indication: Dizziness and weakness, extremity; Additional info: Dizziness weakness TECHNIQUE: Imaging protocol: Computed tomography of the head without contrast. Radiation optimization: All CT scans at this facility use at least one of these dose optimization techniques: automated exposure control; mA and/or kV adjustment per patient size (includes targeted exams where dose is matched to clinical indication); or iterative reconstruction. COMPARISON: None RADIATION DOSE METRICS: Total DLP (mGy-cm): 1224.42 FINDINGS: Brain: Moderate nonspecific white matter low attenuation which may be related to microvascular ischemic changes. Bilateral basal ganglia Lacunes. Cerebral ventricles: The ventricles and sulci are prominent in size compatible with moderate atrophy. Paranasal sinuses: No fluid levels. Mastoid air cells: Visualized mastoid air cells are well aerated. Bones: No acute calvarial fracture. Soft tissues: Visualized soft tissues are unremarkable. CT/CT head wo con* [id number] IMPRESSION: No acute intracranial abnormality. If symptoms persist, consider further evaluation with MRI, if there are no contraindications to obtaining a MRI scan.
--- NOTE | 2025-08-11 15:58 | ECG_ITS ---
[facility] Pat Name: Brii Julian Department: Room: Gender: Female Retail Leasing Agent: : [id number] Requested By: Jun Garcia Order Number: [id number] Angelica MD: Kash Mortensen M.D. Measurements Intervals [place] Rate: 47 P: 58 ID: [id number] QRS: -1 QRSD: 110 T: -15 QT: 437 QTc: 387 Interpretive Statements SINUS BRADYCARDIA VOLTAGE CRITERIA FOR LVH [MEETS CRITERIA IN ONE OF: R(aVL), S(V1), R(V5), R(V5/V6)+S(V1)] Compared to ECG 11/15/2024 21:21:08 Left ventricular hypertrophy now present Sinus rhythm no longer present T-wave abnormality no longer present Electronically Signed On 08-12-2025 19:01:12 CREDIT OPERATIONS PROCESSOR by Kash Mortensen M.D. [email or web address]
[2025-08-11 16:16] VITALS: BP 118/65; BP 131/65; BP 136/68; PULSE 55; PULSE 58; PULSE 77
--- NOTE | 2025-08-11 16:44 | PC.NURSE ---
rn obgyn ambulated pt to restroom and back w/o difficulty. pt reports she lives at home alone and is independant [facility]. pt states she does not use any walking devices.
[2025-08-11 17:40] VITALS: BP 143/72; PULSE 57; O2SAT 100
== END 2025-08-11 17:41 | disposition home or self-care (01) ==
PROVIDERS: Emergency Provider Family Medicine; PCP Family Medicine
DX: I95.1 Orthostatic hypotension (principal)
CPT/HCPCS: 36415; 70450; 80053; 81001; 85025; 93005; 99284; J7030